=== PATIENT | male | born 1970 | race Caucasian/White ===

== ENCOUNTER → 2020-06-10 | Outpatient (CLI) | payer MEDICAID, MEDICARE ==
--- NOTE | 2020-06-10 13:26 | RADIOLOGY REPORT (SQ) ---
EXAM DESCRIPTION: CT ABD/PELVIS NO ORAL OR IV IMAGES COMPLETED DATE/TIME: 06/10/2020 1:07 pm REASON FOR STUDY: ABNORMAL FINDINGS ON DIAGNOSTIC IMAGING R93.5 ABN FINDINGS ON DX IMAGING OF ABD R [employer] RETROPE Z01.810 ENCOUNTER FOR PREPROCEDURAL CARDIOVASCULAR EXAMINATI COMPARISON: None. TECHNIQUE: CT scan of the abdomen and pelvis performed without intravenous or oral contrast. Images reviewed with lung, soft tissue, and bone windows. Reconstructed coronal and sagittal MPR images revi ewed. All images stored on PACS. All CT scanners at this facility use dose modulation, iterative reconstruction, and/or weight based d osing when appropriate to reduce radiation dose to as low as reasonably achievable (ALARA). [facility]: Dose Right [facility]: CareDose [facility]: Dose Right [facility]: Teradose 4D [facility]: [employer] RADIATION DOSE: mGy. LIMITATIONS: None. FINDINGS: LOWER CHEST: Coronary atherosclerosis. No acute findings. NON-CONTRASTED LIVER, SPLEEN, ADRENALS: Evaluation limited by lack of IV contrast. There are innumer able hepatic cysts. Largest cyst within the right hepatic lobe measures 9 cm and demonstrates periph eral calcifications. Multiple additional subcentimeter hypodense hepatic lesions, likely cyst but in completely characterize secondary to lesions size. There are some additional hepatic lesions demonst rate in intermediate density, also incompletely characterize. For example there is a segment 4 lesio n measuring 2.9 cm (series 2, image 20). Unremarkable appearance of the spleen and adrenal glands. PANCREAS: No masses. No peripancreatic inflammatory changes. GALLBLADDER: No identified stones by CT criteria. No inflammatory changes to suggest cholecystitis. RIGHT KIDNEY AND URETER: Right kidney is enlarged measuring 16.3 cm. There are innumerable cysts. A dditional indeterminate intermediate and high density lesions, likely hemorrhagic/ proteinaceous cyst s but incompletely characterized due lack of intravenous contrast. Scattered cortical calcification s associated with multiple cysts. No definitive renal stones. No hydronephrosis or hydroureter. LEFT KIDNEY AND URETER: Left kidney is enlarged measuring 20.1 cm. There are innumerable cysts. Add itional indeterminate intermediate and high density lesions, likely hemorrhagic/ proteinaceous cysts but incompletely characterized due lack of intravenous contrast.Scattered cortical calcifications ass ociated with multiple cysts. No definitive renal stones. No hydronephrosis or hydroureter. AORTA AND RETROPERITONEUM: No aneurysm. No retroperitoneal masses or adenopathy. BOWEL AND PERITONEAL CAVITY: Innumerable colonic diverticula. No focal bowel wall thickening. No ev idence of intestinal obstruction. APPENDIX: Normal. PELVIS, BLADDER, AND ABDOMINAL WALL:Decompressed urinary bladder. No pelvic free fluid, adenopathy o r mass. BONES: No acute bony abnormality. No suspicious lytic or blastic osseous lesions. OTHER: No other significant finding. IMPRESSION: 1. Innumerable bilateral renal and hepatic cysts most compatible with autosomal dominan t polycystic kidney disease. Additional indeterminate renal and hepatic lesions, likely hemorrhagic or proteinaceous cysts but incompletely characterized without intravenous contrast. Multiphase CT or MR could be considered for further characterization. 2. No other evidence of acute intra-abdominal/pelvic process. COMMENT: Quality ID # [id number]: Final reports with documentation of one or more dose reduction techniques (e.g., Automated exposure control, adjustment of the mA and/or kV according to patient size, use of iterative reconstruction technique) TECHNICAL DOCUMENTATION: JOB ID: [id number] 2010 [employer]- All Rights Reserved Reading location - IP/workstation name: [email or web address]
--- NOTE | 2020-06-10 22:20 | XCELERA REPORT ---
[address] [address] Transthoracic Echocardiogram Report Name: GENARO LONG Age: 50 yrs Gender: Male : 1970 Patient Status: Outpatient Patient Location: Study Date: 06/10/2020 02:00 PM Height: 72 in Weight: 185 lb BSA: 2.1 m2 Procedure: A two-dimensional transthoracic echocardiogram with color flow and Doppler was performed. Study Quality: Fair. Reason For Study: Abnormal Findings on Diagnostic Imaging, Kidney transplant Pre Operation History: Abnormal Findings on Diagnostic Imaging, Kidney transplant Pre Operation. Ordering Physician: Senthil CANTU Performed By: Ariane Ness Interpretation Summary The left ventricle is normal in size. There is normal left ventricular wall thickness. LV EF is 65% TO 70% Left ventricular systolic function is normal. Doppler measurements suggest normal left ventricular diastolic function The left ventricular wall motion is normal. There is no thrombus. No ASD,VSD,or PFO seen. The right atrium is normal. The left atrium is mildly dilated. There is no evidence of mitral valve prolapse. There is a mild amount of mitral regurgitation There is no aortic valvular vegetation. There is mild aortic stenosis There is a peak gradient of 15.9 mm of Hg. No hemodynamically significant valvular aortic stenosis. There is no LVOT obstruction. There is a trace amount of aortic regurgitation There is no tricuspid stenosis. There is a mild amount of tricuspid regurgitation There is mild pulmonary hypertension by echo RVSP is 38 to 43 mm of hG , WITH ra MEAN OF 5 TO 10. There is no pulmonic valvular stenosis. The aortic root is normal size. The inferior vena cava appeared normal and decreased > 50% with respiration (RAP 5-10 mmHg) There is no pericardial effusion. MMode/2D Measurements & Calculations RVDd: 3.8 cm LVIDd: 5.7 cm FS: 42.8 % Ao root diam: 3.0 cm IVSd: 0.98 cm LVIDs: 3.3 cm EDV(Teich): 160.1 ml Ao root area: 7.1 cm2 LVPWd: 1.0 cm ESV(Teich): 42.8 ml LA dimension: 4.2 cm EF(Teich): 73.2 % Doppler Measurements & Calculations MV E max amina: MV P1/2t max amina: Ao V2 max: LV V1 max P.7 cm/sec 140.7 cm/sec 199.4 cm/sec 4.5 mmHg MV A max amina: MV P1/2t: 68.3 msec Ao max PG: LV V1 max: 80.9 cm/sec MVA(P1/2t): 3.2 cm2 15.9 mmHg 105.6 cm/sec MV E/A: 1.7 MV dec slope: 603.2 cm/sec2 MV dec time: 0.24 sec PA V2 max: PI end-d amina: TR max amina: MV P1/2t-pr_phl: 69.6 cm/sec 150.9 cm/sec 287.0 cm/sec 68.3 msec PA max P.9 mmHg TR max P.9 mmHg Left Ventricle The left ventricle is normal in size. There is normal left ventricular wall thickness. LV EF is 65% TO 70%. Left ventricular systolic function is normal. Doppler measurements suggest normal left ventricular diastolic function. The left ventricular wall motion is normal. There is no thrombus. No ASD,VSD,or PFO seen. Right Ventricle The right ventricle is normal in size and function. Atria The right atrium is normal. The left atrium is mildly dilated. Mitral Valve There is no evidence of mitral valve prolapse. There is no vegetation seen on the mitral valve. There is no mitral valve stenosis. There is a mild amount of mitral regurgitation. Aortic Valve There is no aortic valvular vegetation. There is mild aortic stenosis. There is a peak gradient of 15.9 mm of Hg. No hemodynamically significant valvular aortic stenosis. There is no LVOT obstruction. There is a trace amount of aortic regurgitation. Tricuspid Valve There is no tricuspid stenosis. There is a mild amount of tricuspid regurgitation. There is mild pulmonary hypertension by echo. RVSP is 38 to 43 mm of hG , WITH ra MEAN OF 5 TO 10. Pulmonic Valve There is no pulmonic valvular stenosis. There is a trace amount of pulmonic regurgitation. Great Vessels The aortic root is normal size. The inferior vena cava appeared normal and decreased > 50% with respiration (RAP 5-10 mmHg). Effusions There is no pericardial effusion. : Senthil CANTU Lakshmi
== END ==
LOC: SP 12:58
PROVIDERS: ATTEND Internal Medicine Nephrology
DX: Z01.810 Encounter for preprocedural cardiovascular examination (principal); R93.5 Abnormal findings on diagnostic imaging of other abdominal regions, including retroperitoneum; I25.10 Atherosclerotic heart disease of native coronary artery without angina pectoris; K76.89 Other specified diseases of liver; Q61.3 Polycystic kidney, unspecified
CPT/HCPCS: 74176; 93306

== ENCOUNTER 2020-06-17 10:16 | Day surgery (SDC) | payer MEDICARE, MEDICAID ==
[2020-06-10 13:24] LABS: ABSOLUTE EOSINOPHILS # (AUTO) 0.3 10^3/uL (0.0-0.6); ABSOLUTE MONOCYTES (AUTO) 0.4 10^3/uL (0.1-1.4); ABSOLUTE NEUT (AUTO) 3.1 10^3/uL (1.7-8.2); BASOPHILS % (AUTO) 0.5 % (0-2); EOSINOPHILS % (AUTO) 4.8 % (0-6); HEMATOCRIT 41.9 % (37.9-51.0); HEMOGLOBIN 14.1 g/dL (13.5-17.0); LYMPHOCYTES % (AUTO) 34.4 % (13-45); MEAN CORPUSCULAR HEMOGLOBIN 31.3 pg (27.0-33.4); MEAN CORPUSCULAR HGB CONC 33.6 g/dL (32.0-36.0); MEAN CORPUSCULAR VOLUME 93 fl (80-97); MONOCYTES % (AUTO) 7.3 % (3-13); PLATELET COUNT 134 10^3/uL (150-450); RED CELL DISTRIBUTION WIDTH 14.6 % (11.5-14.0); TOTAL CELLS COUNTED % (AUTO) 100 %; WHITE BLOOD COUNT 5.8 10^3/uL (4.0-10.5)
[2020-06-10 13:50] LABS: ANION GAP 17 (5-19); BLOOD UREA NITROGEN 62 mg/dL (7-20); CARBON DIOXIDE 24 mmol/L (22-30); CHLORIDE 100 mmol/L (98-107); GLUCOSE 75 mg/dL (75-110); POTASSIUM 5.3 mmol/L (3.6-5.0)
[~2020-06-17 10:16] MED LIST: NORMAL SALINE 1000 ML (RENAL PATIENTS) IV PRN; PROPOFOL INJ 200 MG/20 ML VIAL IV ONE
[2020-06-17] MEDS ORDERED: PROPOFOL INJ 200 MG/20 ML VIAL IV ONE ×2 (11:11→12:37)
--- NOTE | 2020-06-17 12:40 | Operative Report ---
Operative Report DATE OF SURGERY: 06/17/20 Operative Report: The risk, benefits and alternatives of the procedure including the risks of bleeding, perforation requiring surgery have been explained to the patient in detail and informed consent has been obtained. Patient is placed in the left lateral decubital position. Timeout was called. Propofol medication is administered. Rectal examination is done which did not reveal any masses, tears or fissures. An Olympus videoscope was introduced into the patient's rectum. Scope was then carefully advanced all the way to the cecum. Cecum was identified by the usual anatomical landmarks including the ileocecal valve as well as the appendiceal office. Photodocumentation is obtained. Scope was then sequentially pulled back via the various segments of the colon including the ascending colon, hepatic flexure, transverse colon, splenic pressure, descending colon finding to the rectosigmoid portions of the colon. Retroflexion maneuver is performed. PREOPERATIVE DIAGNOSIS: Colorectal cancer screening POSTOPERATIVE DIAGNOSIS: Diverticulosis. Right colon inflammation status post biopsy. Internal hemorrhoids OPERATION: Colonoscopy with biopsy SURGEON: RITCHIE ROMERO ANESTHESIA: LMAC TISSUE REMOVED OR ALTERED: As noted above. COMPLICATIONS: None. ESTIMATED BLOOD LOSS: None. INTRAOPERATIVE FINDINGS: As noted above. PROCEDURE: Patient tolerated the procedure well. No immediate postprocedure complications are noted. Patient is discharged in good condition. Discharge date 06/17/2020. Discharge diet: Regular. Discharge activity: Regular. 2 to 3-week follow-up to discuss findings. Patient is instructed to call the office or proceed to the emergency room should there be any further problems or questions. Follow-up as needed.
[2020-06-17 13:27] VITALS: BP 126/90
== END 2020-06-17 13:20 | disposition home or self-care (01) ==
LOC: END 10:16 → OROUT 13:20
PROVIDERS: ATTEND Internal Medicine Gastroenterology
DX: Z12.11 Encounter for screening for malignant neoplasm of colon (principal); Z12.12 Encounter for screening for malignant neoplasm of rectum; K57.30 Diverticulosis of large intestine without perforation or abscess without bleeding; K52.9 Noninfective gastroenteritis and colitis, unspecified; K64.8 Other hemorrhoids; Z79.899 Other long term (current) drug therapy; Z87.891 Personal history of nicotine dependence; Z03.818 Encounter for observation for suspected exposure to other biological agents ruled out
CPT/HCPCS: 45380; 36415 ×2; 84132; 85025; 80048; 88305 ×2; J2704; 812

== ENCOUNTER 2020-06-26 07:17 | Day surgery (SDC) | payer MEDICARE, MEDICAID ==
[2020-06-21 12:25] LABS: HEMATOCRIT 41.1 % (37.9-51.0); HEMOGLOBIN 13.7 g/dL (13.5-17.0); MEAN CORPUSCULAR HEMOGLOBIN 31.1 pg (27.0-33.4); MEAN CORPUSCULAR HGB CONC 33.3 g/dL (32.0-36.0); MEAN CORPUSCULAR VOLUME 93 fl (80-97); PLATELET COUNT 125 10^3/uL (150-450); RED CELL DISTRIBUTION WIDTH 14.3 % (11.5-14.0); WHITE BLOOD COUNT 6.3 10^3/uL (4.0-10.5)
[~2020-06-26 07:17] MED LIST changes: +ACETAMINOPHEN 325 MG TABLET PO PRN; +CEFAZOLIN 1 GM/D5W RTU 1 GM/50 ML RTUPB IV ONE; +CEFAZOLIN 1 GM/D5W RTU 1 GM/50 ML RTUPB IV PRN; +FENTANYL CITRATE INJ/PF 100 MCG/2 ML AMPUL ONE; +HYDROMORPHONE HCL INJ/PF 2 MG/ML AMPULE ONE; +LIDOCAINE 0.5% INJ-PF (5 MG/ML) 50 ML SDV SUBCUT PRN; +MIDAZOLAM 2 MG/2 ML INJ ONE
[2020-06-26] MEDS ORDERED: CARVEDILOL 12.5 MG TABLET ONE (08:23)
[2020-06-26] MEDS ORDERED: CARVEDILOL 12.5 MG TABLET PO ONE (09:00)
[2020-06-26] MEDS ORDERED: DEXAMETHASONE SOD PHOSPHATE INJ 4 MG/1 ML VIAL ONE (09:16)
[2020-06-26] MEDS ORDERED: KETOROLAC TROMETHAMINE 60 MG/2 ML SDV ONE (09:16)
[2020-06-26] MEDS ORDERED: ONDANSETRON HCL INJ/PF 4 MG/2 ML SDV ONE (09:16)
[2020-06-26] MEDS ORDERED: BUPIVACAINE INJ/PF LIPOSOME/PF 266 MG/20 ML SDV ONE (09:38)
[2020-06-26] MEDS ORDERED: BUPIVACAINE HCL 0.25 % INJ/PF (2.5 MG/1 ML) 30 ML VIAL ONE (09:38)
[2020-06-26] MEDS ORDERED: DIPHENHYDRAMINE HCL 50 MG/ML VIAL IV PRN (10:02)
[2020-06-26] MEDS ORDERED: OXYCODONE-ACETAMINOPHEN 5-325 MG TABLET PO PRN ×2 (10:02)
[2020-06-26] MEDS ORDERED: MEPERIDINE HCL/PF INJ 25 MG/1 ML DISP.SYRIN IV PRN (10:02)
[2020-06-26] MEDS ORDERED: FENTANYL CITRATE INJ/PF 100 MCG/2 ML AMPUL IV PRN ×3 (10:02)
[2020-06-26] MEDS ORDERED: MORPHINE SULFATE 10 MG/ML INJ IV PRN (10:02)
[2020-06-26] MEDS ORDERED: ONDANSETRON HCL INJ/PF 4 MG/2 ML SDV IV PRN (10:02)
[2020-06-26] MEDS ORDERED: PROMETHAZINE HCL INJ 25 MG/1 ML VIAL IV PRN (10:02)
[2020-06-26] MEDS ORDERED: ROCURONIUM BROMIDE INJ 50 MG/5 ML VIAL IV ONE (10:12)
[2020-06-26] MEDS ORDERED: SUCCINYLCHOLINE CHLORIDE INJ 200 MG/10 ML VIAL ONE (10:12)
--- NOTE | 2020-06-26 10:57 | Operative Report ---
Operative Report DATE OF SURGERY: 06/26/20 PREOPERATIVE DIAGNOSIS: 1. Symptomatic left inguinal. 2. End-stage renal kenney lure. 3. HIV positive POSTOPERATIVE DIAGNOSIS: Same with indirect inguinal hernia, left side OPERATION: 1. Left inguinal exploration with left inguinal herniorrhaphy using medium plug and overlay Bard mesh repair. 2. Deployment of Exparel SURGEON: FOREIGN ANTONIO ANESTHESIA: GA TISSUE REMOVED OR ALTERED: None COMPLICATIONS: none ESTIMATED BLOOD LOSS: Minimal INTRAOPERATIVE FINDINGS: See below PROCEDURE: The patient was seen in preop holding area where the left inguinal area was marked. He was then taken to the main operating room and general anesthesia was induced. Left groin was clipped of hair,, prepped and draped in a sterile fashion. Surgical plan and surgical timeout were conducted. The skin was anesthetized with 1% plain lidocaine and quarter percent Marcaine mixed over the inguinal canal. The skin was incised with a #10 blade for the length of 7 cm, on a slight diagonal overlying the inguinal canal. Subcutaneous tissue divided with electrocautery. Haleigh's fascia divided after ligating the predictable deep subcutaneous vein with 3-0 Vicryl suture. The external oblique aponeurosis was anesthetized, then opened along the direction of its fibers. The ilioinguinal nerve was identified, and spared throughout the dissection. Superior and inferior fascial flaps were developed, and the cord contents were mobilized with a Miriam drain carefully. The floor the inguinal canal was intact but somewhat patulous. The contents within the Miriam drains were carefully inspected. There was a moderate sized indirect inguinal hernia which was dissected cleanly from the surrounding cord structures all the way to its point of origination. The hernia sac was inverted into the retroperitoneal space. We cleaned up the fibrotic tissue surrounding the cord structures. There was a cord lipoma which was left in situ. We brought onto the field a nonexpired medium Bard plug and overlay polypropylene mesh. The plug was inverted into the cavity created by the in the very sac. It was sewed to the conjoined tendon with 4 interrupted 0 PDS sutures. We now placed the second component of the prosthesis, the overlying mesh, into position, trimming the inferior side to fit along with the inguinal ligament. The mesh was sewed in a circumferential fashion with approximately 8 interrupted 0 sutures. The 2 lateral leaves were approximated to recreate the new internal ring without undue tension. With the mesh secured, the new internal ring was not too tight, allowing the cord structures ample mobility. Sponge and needle counts are correct. External oblique closed along the direction of its fibers with 2-0 Vicryl suture, again sparing the ilioinguinal nerve. Haleigh's fascia and skin approximately 3-0 Vicryl, then skin glue mauri lied to the skin surface. 20 cc of full-strength Exparel deployed to the subcutaneous tissues. Patient tolerated the procedure well, extubated, taken to recovery in stable condition. The physician pet care assistant, Ms. Sweeney, provided assistance during this case by: Assisting wth retracting tissue, instillation of local anesthesia and closure of skin incisions.
--- NOTE | 2020-06-26 11:00 | Discharge Summary ---
Discharge Summary (SDC) - Discharge Final Diagnosis: 1. Left inguinal hernia, status post. 2. ESRD 3. HIV Date of Surgery: 06/26/20 Discharge Date: 06/26/20 Condition: Good Forms: ASU Anesthesia D/C Instruction, Discharge POC-Surgical Service Prescriptions: Ketorolac Tromethamine [Toradol 10 mg Tablet] 10 mg PO Q6HP PRN #20 tablet PRN Reason: Referrals: FOREIGN ANTONIO MD [ACTIVE STAFF] - 07/09/20 1:00 pm Discharge Diet: As Tolerated Discharge Activity: Other - Walking, and activities of daily living only; no pushing pulling lifting greater than 15 pounds. No driving for 10 days Home Care Assistance: None Needed
[2020-06-26] MEDS ORDERED: OXYCODONE-ACETAMINOPHEN 5-325 MG TABLET ONE (11:28)
[2020-06-26 13:04] VITALS: BP 131/90
== END 2020-06-26 12:45 | disposition home or self-care (01) ==
LOC: OROUT 07:17
PROVIDERS: ATTEND Surgery
DX: K40.90 Unilateral inguinal hernia, without obstruction or gangrene, not specified as recurrent (principal); B20 Human immunodeficiency virus [HIV] disease; D17.6 Benign lipomatous neoplasm of spermatic cord; I12.0 Hypertensive chronic kidney disease with stage 5 chronic kidney disease or end stage renal disease; N18.6 End stage renal disease; K21.9 Gastro-esophageal reflux disease without esophagitis; Z87.891 Personal history of nicotine dependence; Z86.010 Personal history of colon polyps; Z03.818 Encounter for observation for suspected exposure to other biological agents ruled out; Z99.2 Dependence on renal dialysis; Z79.899 Other long term (current) drug therapy; Z98.890 Other specified postprocedural states
CPT/HCPCS: 49505; 36415 ×2; 84132; 85027; U0003 ×2; J2250; J0690; J1100; J3010; A9270 ×2; J2405; J2704; C9290; C9803 ×2; 87635; C1781; J0330; J1170; J1885; J3490